=== PATIENT | male | born 1950 | race African-American/Black ===

== ENCOUNTER 2025-02-21 19:32 | Emergency (ER) | payer MEDICARE ==
[2025-02-21] MEDS ORDERED: Ketorolac Tromethamine 30 MG (1 mL) VIAL ONE (20:40)
[2025-02-21] MEDS ORDERED: Dexamethasone 10 MG/ML VIAL ONE (20:40)
[2025-02-21] MEDS ORDERED: HYDROcodone/Acetaminophen 10/325 mg Tablet ONE (20:40)
== END 2025-02-21 21:32 | disposition home or self-care (01) ==
LOC: ERS 19:32
DX: M54.42 Lumbago with sciatica, left side (principal); I10 Essential (primary) hypertension
CPT/HCPCS: 72100; J1100; J1885